=== PATIENT | male | born 1935 | race Caucasian/White ===

== ENCOUNTER 2019-09-11 11:02 | Inpatient (IN) | payer BC ==
[2019-09-11] VITALS (9 sets, daily range): BP systolic 106–131; BP diastolic 47–80
[~2019-09-11] VITALS: Ht 167.6 cm; Wt 82.0 kg
[~2019-09-11 11:02] MED LIST: AMLO5TAB15 PO; ATO40T PO; CLOP75TA28 PO; FINA5TAB4 PO; LANS30CA57 PO; TAMS0.4C36 PO; VALS40TA2 PO; [UNRECOGNIZED DRUG - CODE] OR
[2019-09-11] MEDS ORDERED: VANCOMYCIN HCL 1000 MG VL ONE ×3 (11:37→12:37)
[2019-09-11] MEDS ORDERED: GENTAMICIN SULF 80 MG/2 ML VIAL ONE (11:38)
[2019-09-11] MEDS ORDERED: ACETAMINOPHEN IV 100 ML IV ONE (11:38)
[2019-09-11] MEDS ORDERED: ACETAMINOPHEN IV 1000 MG/100ML (10MG/ML) IV ONE (11:45)
[2019-09-11] MEDS ORDERED: CELECOXIB 100 MG CAP PO ONE (11:45)
[2019-09-11] MEDS ORDERED: PREGABALIN CAPSULE 75 MG CAP PO ONE (11:45)
[2019-09-11] MEDS ORDERED: TRANEXAMIC ACID 20 ML ONE (11:56)
[2019-09-11] MEDS ORDERED: MORPHINE SULF(PF) 0.5MG/ML 10ML VIAL ONE ×2 (12:06→12:39)
[2019-09-11] MEDS ORDERED: TETRACAINE 1% INJ 2 ML VIAL IJ ONE (12:39)
[2019-09-11] MEDS ORDERED: fentaNYL CITRATE 100 MCG/2 ML VL ONE (12:40)
[2019-09-11] MEDS ORDERED: MIDAZOLAM HCL 1MG/1ML-2 ML VIAL ONE ×2 (12:40→13:23)
[2019-09-11] MEDS ORDERED: PROPOFOL 10 MG/ML 20 ML IV ONE (13:16)
[2019-09-11] MEDS ORDERED: ePHEDrine SULFATE 50 MG/ML AMP IV PRN (13:45)
[2019-09-11] MEDS ORDERED: NALOXONE HCL 0.4 MG/ML VIAL IV PRN (13:45)
[2019-09-11] MEDS ORDERED: HYDROmorphone HCL 2 MG/ML VL IV PRN (13:45)
[2019-09-11] MEDS ORDERED: DexAMETHasone SOD PHOS 10MG/1ML VIAL INJ IV PRN (13:45)
[2019-09-11] MEDS ORDERED: MORPHINE SULFATE 4 MG/ML SYR/VIAL IV PRN (13:45)
[2019-09-11] MEDS ORDERED: LABETALOL HCL 5 MG/ML 4ML SYRINGE IV PRN (13:45)
[2019-09-11] MEDS ORDERED: NALBUPHINE HCL 10 MG/1ml INJECTION SUBCUT ONE (13:45)
[2019-09-11] MEDS ORDERED: ONDANSETRON HCL 4 MG/2 ML VIAL IV PRN ×3 (13:45→15:15)
[2019-09-11] MEDS ORDERED: diphenhdrAMINE HCL 50 MG/1 ML VL IV PRN (13:45)
[2019-09-11] MEDS ORDERED: MIDAZOLAM HCL 1MG/1ML-2 ML VIAL IV PRN (13:45)
[2019-09-11] MEDS ORDERED: KETOROLAC TROMETH 30 MG/ML 1ML VIAL IV PRN ×2 (13:45→15:15)
[2019-09-11] MEDS: BUPIVACAINE W/ EPINEPH 0.25% INJ 50ML MDV ONE ×2 (14:58→22:15)
[2019-09-11] MEDS: KETOROLAC TROMETH 30 MG/ML 1ML VIAL ONE ×2 (14:58→22:19)
[2019-09-11] MEDS ORDERED: NITROGLYCERIN 0.4 MG SL TAB SL PRN (15:15)
[2019-09-11] MEDS ORDERED: MORPHINE SULF INJ 2 MG/ML SYRINGE 1ML IV PRN ×2 (15:15)
[2019-09-11] MEDS ORDERED: VANCOMYCIN PER PHARMACY 0 MG IV SCH (15:15)
[2019-09-11] MEDS ORDERED: BISACODYL 5 MG EC TAB PO PRN (15:15)
--- NOTE | 2019-09-11 16:40 | NUR ---
Patient admitted from OR. Patient is A&Ox3 at this time. Patient assessed. Vital signs within range. Will continue to assess vitals signs Q1HR per spinal duramorph protocol. Family at bedside.
--- NOTE | 2019-09-11 17:00 | NUR ---
Patients vital signs assessed, within normal limits, no acute changes.
--- NOTE | 2019-09-11 18:00 | NUR ---
Patients vital signs assessed at this time. Within limits. No acute changes at this time.
--- NOTE | 2019-09-11 19:17 | NUR ---
Patient vital signs assessed at this time. Within normal limits. No acute changes at this time.
--- NOTE | 2019-09-11 19:27 | NUR ---
Care endorsed to [facility] nurse Shey.
[2019-09-11] MEDS: TAMSULOSIN HYDROCHLORIDE 0.4 MG CAP PO SCH (19:49)
[2019-09-11] MEDS ORDERED: NALOXONE HCL 0.4 MG/ML VIAL ONE ×3 (20:59→23:36)
--- NOTE | 2019-09-11 21:05 | NUR ---
Respiration Rate < 10 Narcan administered Patient resting with eyes closed, arousable to deep stimuli, oriented x 4, answers question appropriately, follows direction. On oxygen at 2L via NC with even, unlabored, deep respirations, continuous pulse ox on with o2 sat at 98%, RR 7. Narcan administered. No s/s of distress. will continue to monitor.
--- NOTE | 2019-09-11 21:10 | NUR ---
Respiratory note: CONTINUOUS PULSOX CHECK ON PT. SPO2 98% ON 2L NC. NO SIGNS OF ANY RESPIRATORY DISTRESS NOTED.
--- NOTE | 2019-09-11 21:10 | NUR ---
Placed call to Anesthesiologist spoke to modern and contemporary art curator Md Jones, notified RE: respirations <10 and Narcan administration. Received new order to transfer patient to telemetry and continue to monitor. Will carry out orders and continue care.
[2019-09-11] MEDS: DOCUSATE SOD 100 MG CAP PO SCH (21:38)
--- NOTE | 2019-09-11 22:00 | NUR ---
Rounds Patient resting with eyes closed, arousable to name, elevated HOB to high fowlers. Assisted patient with dinner and juice.
[2019-09-11] MEDS: LACTATED RINGER'S 1,000 ML IV SCH (22:31)
--- NOTE | 2019-09-11 23:23 | NUR ---
Respiration Rate < 10 Narcan administered Patient resting with eyes closed in high fowlers, arousable to name, oriented x 4, answers question appropriately, follows direction. On oxygen at 2L via NC with even, unlabored, continuous pulse ox on with o2 sat at 98%, RR 6. Narcan administered per orders. No s/s of distress. Will continue to monitor.
[2019-09-12] VITALS (13 sets, daily range): BP systolic 100–137; BP diastolic 51–69
--- NOTE | 2019-09-12 00:15 | NUR ---
Placed call to Anesthesiologist spoke to credit card control clerk Md Jones, notified Md RE: respirations <10 and repeat Narcan administration. Despite patient waking up on and off during rounds and arousable to name, patient RR continues between 6-8 breathes per minute. Notified MD Jones started Narcan 0.8mg in 500mL NS IV at 125mL/hr per orders, verbalized understanding, per MD continue to monitor vital signs. Will continue care.
[2019-09-12] MEDS: LACTATED RINGER'S 1,000 ML IV SCH (01:04)
--- NOTE | 2019-09-12 07:00 | NUR ---
Closing Note patient awake in bed with oxygen on at 2L via NC, continuous pulse ox on at 98%, even and unlabored respirations, RR 14. bed alarm on. Endorsed care to dayskailey RN.
[2019-09-12 07:08] LABS: Basophils # (auto) 0 uL; Basophils % (auto) 0.3 % (0.0-2.0); Eosinophils # (auto) 0.3 uL; Eosinophils % (auto) 5.1 % (0.0-7.0); Hematocrit 34.4 % (41.0-53.0); Hemoglobin 11.6 g/dL (13.5-17.5); Lymphocytes # (auto) 1.1 uL; Lymphocytes % (auto) 21.6 % (10.0-50.0); Mean Corpuscular Hemoglobin 31.8 pg (28.0-32.0); Mean Corpuscular Hgb Conc. 33.8 g/dL (32.0-36.0); Monocytes # (auto) 0.5 uL; Monocytes % (auto) 8.9 % (0.0-12.0); Neutrophils # (auto) 3.4 uL; Neutrophils % (auto) 64.1 % (37.0-80.0); Nucleated Red Blood Cells % 0.1 %; Platelet Count (auto) 205 10^3/uL (140-450); Red Blood Cells 3.66 10^6/uL (4.5-5.90); Red Cell Distribution Width 13.3 % (11.8-14.3); White Blood Cell 5.3 10^3/uL (4.4-10.8)
[2019-09-12 07:16] LABS: Albumin 2.7 g/dL (3.4-5.0); BUN/Creatinine Ratio 16.9; Calcium 7.8 mg/dL (8.5-10.1); Potassium 4.5 mmol/L (3.5-5.1)
[2019-09-12 07:20] LABS: Bilirubin, Total 0.6 mg/dL (0.2-1.0); Total Protein 6.3 g/dL (6.4-8.2)
--- NOTE | 2019-09-12 07:20 | NUR ---
Dr. Monaco at bedside
[2019-09-12] MEDS: ACETAMINOPHEN 325 MG TAB PO PRN (07:36)
[2019-09-12] MEDS: ATORVASTATIN 20 MG TAB PO SCH (09:43)
[2019-09-12] MEDS: CLOPIDOGREL BISULFATE 75 MG TAB PO SCH (09:43)
[2019-09-12] MEDS: FINASTERIDE 5 MG TAB PO SCH (09:43)
[2019-09-12] MEDS: PANTOPRAZOLE 40 MG TAB PO SCH (09:43)
[2019-09-12] MEDS: MULTIPLE VITAMINS W/ MINERALS TAB PO SCH (09:44)
[2019-09-12] MEDS: DOCUSATE SOD 100 MG CAP PO SCH ×2 (09:44→21:54)
[2019-09-12] MEDS ORDERED: VALSARTAN 80 MG TAB PO SCH (10:00)
[2019-09-12] MEDS ORDERED: amLODIPine BESYLATE 5 MG TAB PO SCH (10:00)
--- NOTE | 2019-09-12 15:26 | NUR ---
Munoz removed, pt voided 100 cc in urinal at this time.
--- NOTE | 2019-09-12 16:36 | NUR ---
assessment Patient is a 84 year old male who is alert and oriented. Patients cognitive abilities are intact. Prior to admission patient lived home with family and functioned independently. Patient informed me he is able to care for his own ADLs. Per patient he was admitted for right knee replacement. Patient informed me he has a fww and a bedside commode for home use. Patients PCP is Dr Zambrano. Patient is requesting rehab on discharge. I informed patient he has a right to speak to a social worker palliative care regarding all care. I informed patient he has a right to participate in any and all discharge planning. Patient has a POA and advanced directive. Patient verbalized understanding and agreed to discharge plan. Addendum: 09/13/19 at 1643 by Holely GREEN Amended: Links added.
[2019-09-12] MEDS: OXYCODONE W/ ACETAMINOPHEN 5/325MG TABLET PO PRN (17:29)
[2019-09-12] MEDS: TAMSULOSIN HYDROCHLORIDE 0.4 MG CAP PO SCH (17:30)
--- NOTE | 2019-09-12 19:30 | NUR ---
received pt from day rn poc reviewed
--- NOTE | 2019-09-12 20:00 | NUR ---
pt resting comfortable resp even and unlabored, cpm off from day shift, discussed poc with pt, no c/o pain at this time, urinal and call light within reach,
[2019-09-13] MEDS: OXYCODONE W/ ACETAMINOPHEN 5/325MG TABLET PO PRN ×2 (01:42→06:31)
--- NOTE | 2019-09-13 01:57 | NUR ---
awoke c/o right knee pain 05/01 medicated with percocet as ordered
--- NOTE | 2019-09-13 03:31 | NUR ---
medicated with toradol for c/o pain not relieved with percocet, resp even and unlabored right leg dressing dry and intact, repositioned right leg
--- NOTE | 2019-09-13 03:58 | NUR ---
pt states pain relieved with toradol
[2019-09-13 05:00] VITALS: BP 127/64
--- NOTE | 2019-09-13 06:00 | NUR ---
awoke am care given, cpm off all night, on at this time, pt educated on controls and purpose of rx, all questions and concerns addressed, dressing dry and intact, tylenol given for temp 99.5
[2019-09-13 06:27] LABS: Hematocrit 32.5 % (41.0-53.0); Hemoglobin 11.1 g/dL (13.5-17.5)
[2019-09-13] MEDS: ACETAMINOPHEN 325 MG TAB PO PRN (06:27)
--- NOTE | 2019-09-13 06:59 | NUR ---
report given to am nurse poc reviewed
[2019-09-13 08:41] VITALS: BP 134/67
[2019-09-13] MEDS: DOCUSATE SOD 100 MG CAP PO SCH (09:33)
[2019-09-13] MEDS: ATORVASTATIN 20 MG TAB PO SCH (09:39)
[2019-09-13] MEDS: CLOPIDOGREL BISULFATE 75 MG TAB PO SCH (09:39)
[2019-09-13] MEDS: FINASTERIDE 5 MG TAB PO SCH (09:39)
[2019-09-13] MEDS: PANTOPRAZOLE 40 MG TAB PO SCH (09:39)
[2019-09-13] MEDS: MULTIPLE VITAMINS W/ MINERALS TAB PO SCH (09:45)
[2019-09-13] MEDS ORDERED: VALSARTAN 80 MG TAB PO SCH (10:00)
[2019-09-13] MEDS ORDERED: amLODIPine BESYLATE 5 MG TAB PO SCH (10:00)
--- NOTE | 2019-09-13 12:23 | NUR ---
D/C Planning Per consult for SNF Placement for rehab. Contacted [facility] Ph:( [phone]) Fax:) Faxed medical records. Per Mary from [facility] Pt has been accepted to room [address] Valentino. Contacted [facility] Ph:) Fax:) faxed medical records requesting authorization for SNF and transportation. Per Studio Receptionist Juanita from [facility] authorization for SNF is [id number] and for Transportation is [id number]. Contacted [facility] ph:( [phone]) spoke to Latrell. Advised Latrell from [facility] to arrange transportation at 14:00 via gurney with oxygen. Informed [facility] Link. Addendum: 09/13/19 at 1229 by NEGRO KNOWLES Amended: Links added.
[2019-09-13 13:07] VITALS: BP 134/67
--- NOTE | 2019-09-13 14:18 | NUR ---
REPORT CALLED TO ELSI, RECEIVING NURSE AT [facility]. PT TRANSFERRED TO FACILITY AT THIS TIME VIA AMBULANCE.
== END 2019-09-13 14:10 | DRG 470 ==
LOC: SUR 11:02 → TELE-CENTR 11:03
PROVIDERS: ADMIT Orthopaedic Surgery Adult Reconstructive Orthopaedic Surgery; ATTEND Orthopaedic Surgery Adult Reconstructive Orthopaedic Surgery
PROC: 0SRC0J9 Replacement of Right Knee Joint with Synthetic Substitute, Cemented, Open Approach (ICD-10-PCS; principal; 2019-09-11 13:05)
DX: M17.11 Unilateral primary osteoarthritis, right knee (principal); I95.81 Postprocedural hypotension; E78.5 Hyperlipidemia, unspecified; I10 Essential (primary) hypertension; J44.9 Chronic obstructive pulmonary disease, unspecified; K21.9 Gastro-esophageal reflux disease without esophagitis; N40.0 Benign prostatic hyperplasia without lower urinary tract symptoms; Z83.3 Family history of diabetes mellitus; Z87.891 Personal history of nicotine dependence; Z88.0 Allergy status to penicillin; Z88.8 Allergy status to other drugs, medicaments and biological substances
CPT/HCPCS: 36415; 73560; 80053; 80202; 85014; 85018; 85025; 86850; 86900; 86901; 94762; 97116; 97530; C1713; G0378; J0131; J1885; J2250; J2704